=== PATIENT | male | born 1985 | race Caucasian/White ===

== ENCOUNTER 2018-08-05 19:55 | Emergency (ER) | payer OTHER ==
[2018-08-05] MEDS: ONDANSETRON (ODT) 4 MG TAB ODT (21:01)
[2018-08-05] MEDS: HYDROCODONE/APAP (10/325) TAB PO (21:01)
== END 2018-08-05 22:38 | disposition home or self-care (01) ==
LOC: E/R 19:55
DX: S43.102A Unspecified dislocation of left acromioclavicular joint, initial encounter (principal); W18.39XA Other fall on same level, initial encounter; Y92.9 Unspecified place or not applicable
CPT/HCPCS: 73000; 73030; 99283-25